=== PATIENT | male | born 1990 | race Caucasian/White ===

== ENCOUNTER 2018-01-06 20:41 | Emergency (ER) | payer OTHER, SELFPAY ==
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
[2018-01-06] MEDS ORDERED: FENTANYL CITR 100 MCG/2 ML ONE (21:25)
[2018-01-06] MEDS ORDERED: ONDANSETRON 4 MG/2 ML VIAL ONE (21:26)
== END 2018-01-06 21:33 | disposition home or self-care (01) ==
LOC: ER 20:41
DX: S20.219A Contusion of unspecified front wall of thorax, initial encounter (principal); V09.20XA Pedestrian injured in traffic accident involving unspecified motor vehicles, initial encounter; Y93.89 Activity, other specified; Y92.410 Unspecified street and highway as the place of occurrence of the external cause; F17.210 Nicotine dependence, cigarettes, uncomplicated; Z91.010 Allergy to peanuts; M41.9 Scoliosis, unspecified
CPT/HCPCS: 71250; 96374; 96375; 99285; J2405; J3010